=== PATIENT | female | born 1985 | race Caucasian/White ===

== ENCOUNTER 2017-05-05 19:07 | Emergency (ER) | payer OTHER ==
[~2017-05-05] VITALS: Ht 162.6 cm; Wt 43.5 kg
[2017-05-05 19:12] VITALS: Ht 162.6 cm; Wt 43.5 kg
[2017-05-05] MEDS ORDERED: IBUP400T22 PO (20:01)
--- NOTE | 2017-05-05 21:01 | ERD ---
ER Documentation Chief Complaint Chief Complaint fever on and off x 1 day HPI This patient is an otherwise healthy 31-year-old female presenting to the emergency department with complaints of intermittent fever for 15 hours. The patient did not take her temperature at home, she just felt hot. She also reports full body aches. She last took Tylenol 5 PM today. She has had sick contacts. She has had no flu shot this year. She denies urinary symptoms, nausea, vomiting, diarrhea, or other symptoms at this time. ROS All systems reviewed and are negative except as per history of present illness. Medications Home Meds Active Scripts Ibuprofen* (Motrin*) 400 Mg Tab, 400 MG PO Q6, #30 TAB Prov:AYLA COUCH PA-C 05/05/17 Allergies Allergies: Coded Allergies: No Known Allergy (Unverified , 05/05/17) PMhx/Soc Medical and Surgical Hx: pt denies Medical Hx, pt denies Surgical Hx Hx Alcohol Use: No Hx Substance Use: No Hx Tobacco Use: No Smoking Status: Never smoker Physical Exam Vitals Vital Signs Date Time Temp Pulse Resp B/P Pulse Ox O2 Delivery O2 Flow Rate FiO2 05/05/17 19:12 99.6 122 20 123/73 100 Physical Exam Const: Nontoxic, well-appearing female resting in no acute distress. Head: Atraumatic Eyes: Normal Conjunctiva ENT: Normal External Ears, Nose and Mouth. Neck: Full range of motion..~ No meningismus. Resp: Clear to auscultation bilaterally Cardio: Regular rate and rhythm, no murmurs Skin: No petechiae or rashes Ext: No cyanosis, or edema Neur: Awake and alert Psych: Normal Mood and Affect Procedures/MDM This patient is a very pleasant 31-year-old female presenting to the emergency department complaints of full body pain and fevers. History and physical examination is consistent with a viral syndrome, likely influenza. The patient has no history of immunocompromised state, and her physical examination is essentially unremarkable. Vital signs are within normal limits. I believe the patient is stable and appropriate for outpatient management with a prescription for ibuprofen. The patient was in agreement with the discharge plan a diagnosis. She is to return immediately for any new or worsening symptoms and have close primary care follow-up. Departure Diagnosis: Primary Impression: Viral syndrome Additional Impression: Fever Fever type: unspecified Qualified Code: R50.9 - Fever, unspecified fever cause Condition: Fair Patient Instructions: Influenza (Adult) Referrals: [facility] YOU HAVE RECEIVED A MEDICAL SCREENING EXAM AND THE RESULTS INDICATE THAT YOU DO NOT HAVE A CONDITION THAT REQUIRES URGENT TREATMENT IN THE EMERGENCY DEPARTMENT. FURTHER EVALUATION AND TREATMENT OF YOUR CONDITION CAN WAIT UNTIL YOU ARE SEEN IN YOUR DOCTORS OFFICE WITHIN THE NEXT 1-2 DAYS. IT IS YOUR RESPONSIBILITY TO MAKE AN APPOINTMENT FOR FOLOW-UP CARE. IF YOU HAVE A PRIMARY DOCTOR --you should call your primary doctor and schedule an appointment IF YOU DO NOT HAVE A PRIMARY DOCTOR YOU CAN CALL OUR PHYSICIAN REFERRAL HOTLINE AT IF YOU CAN NOT AFFORD TO SEE A PHYSICIAN YOU CAN CHOSE FROM THE FOLLOWING [facility] [address] [facility]. [facility] [address] [facility]. [facility] [address] [facility] [facility] [address] [facility]. [facility] [address] [facility]. [facility]. [address] Additional Instructions: Call your primary care doctor TOMORROW for an appointment during the next 1-2 days.See the doctor sooner or return here if your condition worsens before your appointment time. AYLA COUCH PA-C May 05, 2017 21:01
== END 2017-05-05 20:38 | disposition home or self-care (01) ==
LOC: FTE 19:07
DX: B34.9 Viral infection, unspecified (principal)
CPT/HCPCS: 99283

== ENCOUNTER 2017-11-22 10:29 | Day surgery (SDC) | END 2017-11-22 18:47 | disposition home or self-care (01) ==

== ENCOUNTER 2018-04-26 06:42 | Day surgery (SDC) | END 2018-04-26 10:26 | disposition home or self-care (01) ==